=== PATIENT | female | born 1980 | race Two or more races ===

== ENCOUNTER 2023-07-24 10:50 | Emergency (ER) | payer OTHER ==
[~2023-07-24] VITALS: Ht 162.6 cm; Wt 63.5 kg
== END 2023-07-24 16:06 | disposition home or self-care (01) ==
LOC: ER 10:51
DX: S43.401A Unspecified sprain of right shoulder joint, initial encounter (principal); X50.1XXA Overexertion from prolonged static or awkward postures, initial encounter; Y92.9 Unspecified place or not applicable; Y93.B9 Activity, other involving muscle strengthening exercises; Y99.9 Unspecified external cause status